=== PATIENT | female | born 1980 | race American Indian/Alaskan Native ===

== ENCOUNTER 2021-02-21 23:54 | Emergency (ER) | payer SELFPAY ==
[2021-02-22] MEDS ORDERED: diazePAM 5 MG TAB PO ONE (02:15)
[2021-02-22] MEDS ORDERED: KETOROLAC 30 MG/1 ML INJ IM ONE (02:15)
--- NOTE | 2021-02-22 03:05 | Emergency Department Report ---
ED General Adult HPI - General Chief complaint: Dental/Oral Stated complaint: FACE LOCKED UP Source: patient Mode of arrival: Ambulatory Limitations: No Limitations - History of Present Illness Initial comments: Patient is a 40-year-old -[place] Citizen female with no past medical history who presents to the ED with complaint of acute onset persistent mandibular pain and locked mandibles after she laughed loudly at home resulting in both of a mandible to be locked in place and unable to move. Patient states that she is unable to speak normally with the mouth but has to speak through her open lips and tongue. Patient states that she has previously had a similar symptoms but that it has been a very long time. Patient states that when this happened last time it was reduced by itself. Patient denies shortness of breath, dizziness, syncope, headache, nausea and vomiting, chest pain or fever, chills, cough or headache. MD Complaint: Lockjaw; painful left jaw -: Sudden, hour(s) (2) Location: mouth Radiation: non-radiation Severity scale (0 -10): 6 Quality: aching, sharp Consistency: constant Improves with: none Worsens with: none Associated Symptoms: denies other symptoms. denies: confusion, chest pain, cough, diaphoresis, fever/chills, headaches, loss of appetite, malaise, nausea/vomiting, seizure, shortness of breath, syncope, weakness, other Treatments Prior to Arrival: none - Related Data Previous Rx's Medication Instructions Recorded Last Taken Type Ibuprofen [Motrin] 800 mg PO Q8HR PRN #24 tablet 02/22/21 Unknown Rx tiZANidine [Zanaflex 4mg TAB] 4 mg PO Q8H PRN #15 tablet 02/22/21 Unknown Rx Allergies Allergy/AdvReac Type Severity Reaction Status Date / Time No Known Allergies Allergy Verified 02/22/21 02:18 ED Review of Systems ROS: Stated complaint: FACE LOCKED UP Other details as noted in HPI Constitutional: denies: chills, fever Eyes: denies: eye pain, eye discharge, vision change ENT: other (Mouth pain due to a locked jaw). denies: ear pain, throat pain Respiratory: denies: cough, shortness of breath, wheezing Cardiovascular: denies: chest pain, palpitations Endocrine: no symptoms reported Gastrointestinal: denies: abdominal pain, nausea, diarrhea Genitourinary: denies: urgency, dysuria, discharge Musculoskeletal: denies: back pain, joint swelling, arthralgia Skin: denies: rash, lesions Neurological: denies: headache, weakness, paresthesias Psychiatric: denies: anxiety, depression Hematological/Lymphatic: denies: easy bleeding, easy bruising ED Past Medical Hx - Past Medical History Previous Medical History?: No - Surgical History Past Surgical History?: No - Medications Home Medications: Home Medications Medication Instructions Recorded Confirmed Last Taken Type Ibuprofen [Motrin] 800 mg PO Q8HR PRN #24 tablet 02/22/21 Unknown Rx tiZANidine [Zanaflex 4mg TAB] 4 mg PO Q8H PRN #15 tablet 02/22/21 Unknown Rx ED Physical Exam - General Limitations: No Limitations General appearance: alert, in no apparent distress - Head Head exam: Present: atraumatic, normocephalic, normal inspection - Eye Eye exam: Present: normal appearance, PERRL, EOMI Pupils: Present: normal accommodation - ENT ENT exam: Present: normal orophraynx, mucous membranes moist, TM's normal bilaterally, normal external ear exam, other (Palpable bilateral TMJ tenderness with limited range of motion due to pain) - Neck Neck exam: Present: normal inspection, full ROM - Respiratory Respiratory exam: Present: normal lung sounds bilaterally. Absent: respiratory distress, wheezes, rales, rhonchi, chest wall tenderness, accessory muscle use, decreased breath sounds - Cardiovascular Cardiovascular Exam: Present: regular rate, normal rhythm, normal heart sounds. Absent: systolic murmur, diastolic murmur, rubs, gallop - GI/Abdominal GI/Abdominal exam: Present: soft, tenderness, guarding, rebound, normal bowel sounds, hyperactive bowel sounds, hypoactive bowel sounds - Extremities Exam Extremities exam: Present: normal inspection, full ROM, normal capillary refill - Back Exam Back exam: Present: normal inspection, full ROM. Absent: tenderness, CVA tenderness (R), CVA tenderness (L), muscle spasm, vertebral tenderness - Neurological Exam Neurological exam: Present: alert, oriented X3, CN II-XII intact, normal gait, reflexes normal - Psychiatric Psychiatric exam: Present: normal affect, normal mood - Skin Skin exam: Present: warm, dry, intact, normal color. Absent: rash ED Course Vital Signs 02/22/21 00:05 Temperature 98.0 F Pulse Rate 98 H Respiratory 16 Rate Blood Pressure 189/104 O2 Sat by Pulse 99 Oximetry ED Medical Decision Making - Radiology Data Radiology results: report reviewed, image reviewed [facility], [place] [address] [place] [address] XRay Report Signed Patient: SHARLENE NEWELL MR#: [id number] : 1980 Acct:[id number] Age/Sex: 40 / F ADM Date: 02/21/21 Loc: ED Attending Dr: Ordering Physician: SIDNEY MANTILLA Date of Service: 02/22/21 Procedure(s): XR mandible <4V Accession Number(s): [id number] cc: SIDNEY MANTILLA Fluoro Time In Minutes: XR mandible <4V INDICATION: Locked jaw - pain. COMPARISON: No relevant prior imaging study available. FINDINGS: The bilateral mandibular condyles are anteriorly subluxed with respect to the glenoid fossa. No fracture is seen. No significant soft tissue abnormality. IMPRESSION: 1. Bilateral anterior subluxation/dislocation of the TMJ joints. Signer Name: Lukasz Schulte MD Signed: 02/22/2021 4:09 AM Workstation Name: [id number] Transcribed By: Dictated By: Lukasz Schulte MD Electronically Authenticated By: Lukasz Schulte MD Signed Date/Time: 02/22/21408 DD/ 5 TD/TT: - Medical Decision Making This is a 40-year-old -[place] Citizen female with no past medical history who presents to the ED with complaint of acute onset persistent mandibular pain and locked mandibles after she laughed loudly at home resulting in both of a mandible to be locked in place and unable to move. Patient states that she is unable to speak normally with the mouth but has to speak through her open lips and tongue. Patient states that she has previously had a similar symptoms but that it has been a very long time. Patient states that when this happened last time it was reduced by itself. In the ED, patient is alert and oriented x3 and is not in any distress. Patient was treated for pain in the ED and mandibular x-ray showed bilateral anterior subluxation/dislocation of the TMJ joints. These findings were discussed with the ED attending physician Dr. Gabi Briggs who manually reduced the dislocated mandibles successfully. Patient was thereafter discharged home on medication and advised to follow-up with her primary care physician in 5 to 7 days for reevaluation or return to the ED immediately if symptoms get worse. - Differential Diagnosis Mandibular fracture; mandibular dislocation; muscle strain Critical care attestation.: If time is entered above; I have spent that time in minutes in the direct care of this critically ill patient, excluding procedure time. ED Disposition Clinical Impression: Closed dislocation of mandible Qualifiers: Encounter type: initial encounter Qualified Code(s): S03.00XA - Dislocation of jaw, unspecified side, initial encounter Disposition: HOME / SELF CARE / HOMELESS Is pt being admited?: No Does the pt Need Aspirin: No Condition: Stable Additional Instructions: Take medication with food, drink plenty of fluids and follow-up with your primary care physician in 5 to 7 days for reevaluation. Return to the ED immediately if symptoms get worse. Prescriptions: Ibuprofen [Motrin] 800 mg PO Q8HR PRN #24 tablet PRN Reason: Pain , Severe (7-10) tiZANidine [Zanaflex 4mg TAB] 4 mg PO Q8H PRN #15 tablet PRN Reason: Muscle Spasm Referrals: [facility] [Provider Group] - 7-10 days Forms: Work/School Release Form(ED) Time of Disposition: 05:55 Print Language: FRISIAN
--- NOTE | 2021-02-22 04:13 | XRay Report ---
XR mandible <4V INDICATION: Locked jaw - pain. COMPARISON: No relevant prior imaging study available. FINDINGS: The bilateral mandibular condyles are anteriorly subluxed with respect to the glenoid fossa. No fracture is seen. No significant soft tissue abnormality. IMPRESSION: 1. Bilateral anterior subluxation/dislocation of the TMJ joints. Signer Name: Lukasz Schulte MD Signed: 02/22/2021 4:09 AM Workstation Name: [id number]
--- NOTE | 2021-02-22 05:30 | Event Note ---
Procedure note: Bilateral TMJ dislocation On exam patient is unable to close mouth. Verbal consent obtained for manual reduction. With gloved hands by pulled mandible inferiorly and with posterior superior maneuver able to relocate mandible. Patient is able to speak and move mouth appropriately.
[2021-02-22 06:46] VITALS: BP 126/82
== END 2021-02-22 06:46 | disposition home or self-care (01) ==
LOC: ED 23:54
DX: S03.00XA Dislocation of jaw, unspecified side, initial encounter (principal); X58.XXXA Exposure to other specified factors, initial encounter; Y93.89 Activity, other specified; Y92.89 Other specified places as the place of occurrence of the external cause; Y99.8 Other external cause status
CPT/HCPCS: 70100; 96372; 99283; J1885